=== PATIENT | male | born 1955 | race Caucasian/White ===

== ENCOUNTER → 2017-09-30 | Outpatient (CLI) | payer OTHER ==
[~2017-09-30] MED LIST: ACET-1600 PO; ASPI325T80 PO; CELE200C PO; CEPH-376 PO; HYDR-3307 PO; IBUP-1221 PO; MELO15TA6 PO; SENN1TAB67 PO
== END | disposition home or self-care (01) ==
LOC: CVU 13:33
PROVIDERS: ATTEND Internal Medicine Cardiovascular Disease
DX: I82.513 Chronic embolism and thrombosis of femoral vein, bilateral (principal); I82.533 Chronic embolism and thrombosis of popliteal vein, bilateral; I82.543 Chronic embolism and thrombosis of tibial vein, bilateral; Z96.653 Presence of artificial knee joint, bilateral
CPT/HCPCS: 93970

== ENCOUNTER → 2017-10-13 | Outpatient (CLI) | payer OTHER | END | disposition home or self-care (01) | LOC: WOUND 10:01 | PROVIDERS: ATTEND Nurse Practitioner Family | DX: I87.333 Chronic venous hypertension (idiopathic) with ulcer and inflammation of bilateral lower extremity (principal); L97.821 Non-pressure chronic ulcer of other part of left lower leg limited to breakdown of skin; L97.811 Non-pressure chronic ulcer of other part of right lower leg limited to breakdown of skin; F17.210 Nicotine dependence, cigarettes, uncomplicated; Z96.653 Presence of artificial knee joint, bilateral; Z72.89 Other problems related to lifestyle | CPT/HCPCS: 99215 ==

== ENCOUNTER → 2017-10-27 | Outpatient (CLI) | payer OTHER | END | disposition home or self-care (01) | LOC: WOUND 07:38 | PROVIDERS: ATTEND Nurse Practitioner Family | DX: I87.333 Chronic venous hypertension (idiopathic) with ulcer and inflammation of bilateral lower extremity (principal); L97.811 Non-pressure chronic ulcer of other part of right lower leg limited to breakdown of skin; L97.821 Non-pressure chronic ulcer of other part of left lower leg limited to breakdown of skin; F17.210 Nicotine dependence, cigarettes, uncomplicated; Z72.89 Other problems related to lifestyle; Z96.653 Presence of artificial knee joint, bilateral | CPT/HCPCS: 99213 ==

== ENCOUNTER → 2017-11-10 | Outpatient (CLI) | payer OTHER | END | disposition home or self-care (01) | LOC: WOUND 07:52 | PROVIDERS: ATTEND Internal Medicine Infectious Disease | DX: I87.311 Chronic venous hypertension (idiopathic) with ulcer of right lower extremity (principal); L97.811 Non-pressure chronic ulcer of other part of right lower leg limited to breakdown of skin; L24.89 Irritant contact dermatitis due to other agents; I73.9 Peripheral vascular disease, unspecified; F17.210 Nicotine dependence, cigarettes, uncomplicated; Z96.653 Presence of artificial knee joint, bilateral; Z72.89 Other problems related to lifestyle | CPT/HCPCS: 99214 ==

== ENCOUNTER → 2017-12-09 | Outpatient (CLI) | payer OTHER | END | disposition home or self-care (01) | LOC: WOUND 08:51 | PROVIDERS: ATTEND Internal Medicine | DX: I87.322 Chronic venous hypertension (idiopathic) with inflammation of left lower extremity (principal); L97.821 Non-pressure chronic ulcer of other part of left lower leg limited to breakdown of skin; I87.311 Chronic venous hypertension (idiopathic) with ulcer of right lower extremity; L97.811 Non-pressure chronic ulcer of other part of right lower leg limited to breakdown of skin; I73.9 Peripheral vascular disease, unspecified; F41.8 Other specified anxiety disorders; F17.200 Nicotine dependence, unspecified, uncomplicated; F12.10 Cannabis abuse, uncomplicated; Z96.653 Presence of artificial knee joint, bilateral | CPT/HCPCS: 99214 ==

== ENCOUNTER → 2019-12-08 | Outpatient (CLI) | payer OTHER ==
[~2019-12-08] MED LIST changes: -HYDR-3307 PO; +HYDR-36 PO
[2019-12-08 12:54] LABS: BASOPHILS # (AUTO) 0.02 x10^3/uL (0-0.1); BASOPHILS % (AUTO) 0 % (0-1); EOSINOPHILS # (AUTO) 0.08 x10^3/uL (0-0.4); EOSINOPHILS % (AUTO) 2 % (1-7); LYMPHOCYTES # (AUTO) 1.15 x10^3/uL (1-3.4); LYMPHOCYTES % (AUTO) 24 % (22-44); MD NO; MEAN CORPUSCULAR HEMOGLOBIN 33.2 pg (27.5-34.5); MEAN CORPUSCULAR HGB CONC 34.2 g/dL (33.2-36.2); MEAN CORPUSCULAR VOLUME 97.3 fL (81-97); MEAN PLATELET VOLUME 7.1 fL (7.4-10.4); MONOCYTES # (AUTO) 0.39 x10^3/uL (0.2-0.8); MONOCYTES % (AUTO) 8 % (2-9); NEUTROPHILS # (AUTO) 3.23 x10^3/uL (1.8-6.8); NEUTROPHILS % (AUTO) 66 % (42-75); PLATELET COUNT 228 x10^3/uL (130-400); RED BLOOD COUNT 5.14 x10^6/uL (4.38-5.82); RED CELL DISTRIBUTION WIDTH 12.9 % (9.4-14.8)
[2019-12-08 13:32] LABS: CHLORIDE 109 mmol/L (98-107)
[2019-12-08 13:46] LABS: ALANINE AMINOTRANSFERASE 27 U/L (12-78); ALBUMIN 3.8 g/dL (3.4-5.0); ALKALINE PHOSPHATASE 186 U/L (45-117); BILIRUBIN,TOTAL 1.1 mg/dL (0.2-1.0); CALCIUM 8.6 mg/dL (8.5-10.1); CHOL/HDL RATIO 3.4; CHOLESTEROL, TOTAL 170 mg/dL (140-239); CREATININE 1.02 mg/dL (0.7-1.3); HDL CHOL % 29 % (26-37); HDL CHOLESTEROL (DIRECT) 50 mg/dL (40-60); LDL CHOLESTEROL,CALCULATED 98 mg/dL (54-169); TOTAL PROTEIN 7.3 g/dL (6.4-8.2); TRIGLYCERIDES 109 mg/dL (50-200); VLDL CHOLESTEROL 22 mg/dL (0-25)
[2019-12-08 17:10] LABS: ANION GAP 7 mmol/L (5-15)
== END | disposition home or self-care (01) ==
LOC: CFH 08:14
PROVIDERS: ATTEND Internal Medicine
DX: Z13.220 Encounter for screening for lipoid disorders (principal); Z23 Encounter for immunization; I82.401 Acute embolism and thrombosis of unspecified deep veins of right lower extremity; E66.9 Obesity, unspecified; I87.2 Venous insufficiency (chronic) (peripheral); L29.9 Pruritus, unspecified
CPT/HCPCS: 36415; 80053; 80061; 85025

== ENCOUNTER → 2020-02-13 | Outpatient (CLI) | payer OTHER ==
[~2020-02-13] MED LIST changes: +HYDR-3246 PO; -HYDR-36 PO
[2020-02-13 12:51] LABS: BASOPHILS # (AUTO) 0.02 x10^3/uL (0-0.1); BASOPHILS % (AUTO) 0 % (0-1); EOSINOPHILS # (AUTO) 0.04 x10^3/uL (0-0.4); EOSINOPHILS % (AUTO) 1 % (1-7); LYMPHOCYTES # (AUTO) 0.73 x10^3/uL (1-3.4); LYMPHOCYTES % (AUTO) 16 % (22-44); MD NO; MEAN CORPUSCULAR HEMOGLOBIN 33.2 pg (27.5-34.5); MEAN CORPUSCULAR HGB CONC 33.3 g/dL (33.2-36.2); MEAN CORPUSCULAR VOLUME 99.9 fL (81-97); MEAN PLATELET VOLUME 7.2 fL (7.4-10.4); MONOCYTES # (AUTO) 0.33 x10^3/uL (0.2-0.8); MONOCYTES % (AUTO) 7 % (2-9); NEUTROPHILS # (AUTO) 3.54 x10^3/uL (1.8-6.8); NEUTROPHILS % (AUTO) 76 % (42-75); PLATELET COUNT 221 x10^3/uL (130-400); RED BLOOD COUNT 4.72 x10^6/uL (4.38-5.82); RED CELL DISTRIBUTION WIDTH 13.3 % (9.4-14.8)
[2020-02-13 12:59] LABS: CHLORIDE 107 mmol/L (98-107)
[2020-02-13 13:18] LABS: ALANINE AMINOTRANSFERASE 25 U/L (12-78); ALBUMIN 3.6 g/dL (3.4-5.0); ALKALINE PHOSPHATASE 177 U/L (45-117); ANION GAP 8 mmol/L (5-15); BILIRUBIN,TOTAL 1.4 mg/dL (0.2-1.0); CALCIUM 8.7 mg/dL (8.5-10.1); CREATININE 1.03 mg/dL (0.7-1.3); TOTAL PROTEIN 6.6 g/dL (6.4-8.2)
== END | disposition home or self-care (01) ==
LOC: CFH 10:13
PROVIDERS: ATTEND Internal Medicine
DX: I82.409 Acute embolism and thrombosis of unspecified deep veins of unspecified lower extremity (principal)
CPT/HCPCS: 36415; 80053; 81240; 81241; 82668; 85025; 86146; 86147

== ENCOUNTER → 2020-06-01 | Outpatient (CLI) | payer OTHER ==
[2020-06-01 15:35] LABS: ALANINE AMINOTRANSFERASE 28 U/L (12-78); ALBUMIN 3.6 g/dL (3.4-5.0); ANION GAP 5 mmol/L (5-15); CHLORIDE 109 mmol/L (98-107); CREATININE 0.94 mg/dL (0.7-1.3)
[2020-06-01 15:38] LABS: ALKALINE PHOSPHATASE 172 U/L (45-117); BILIRUBIN,TOTAL 1.1 mg/dL (0.2-1.0); TOTAL PROTEIN 6.8 g/dL (6.4-8.2)
== END | disposition home or self-care (01) ==
LOC: LAB 15:05
PROVIDERS: ATTEND Internal Medicine
DX: I82.503 Chronic embolism and thrombosis of unspecified deep veins of lower extremity, bilateral (principal); F10.20 Alcohol dependence, uncomplicated
CPT/HCPCS: 36415; 80053